=== PATIENT | male | born 1980 | race Caucasian/White ===

== ENCOUNTER 2024-08-07 20:58 | Emergency (ER) | payer OTHER, SELFPAY ==
[2024-08-07 21:02] VITALS: BP 126/78; PULSE 95; RESP 26; TEMP 36.8; O2SAT 98; BMI 40.6
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
[2024-08-07 21:38] VITALS: BP 126/78; PULSE 108; RESP 17; O2SAT 91
[2024-08-07 21:46] LABS: Alanine Aminotransferase 279 U/L (0-41); Albumin Level 4.3 g/dL (3.5-5.2); Alcohol Level 214 mg/dL (0-10); Alkaline Phosphatase 53 U/L (40-130); Anion Gap 18.4 (5-19); Aspartate Amino Transferase 328 U/L (0-40); Blood Urea Nitrogen 11 mg/dL (6-20); Calcium 8.4 mg/dL (8.5-10.5); Carbon Dioxide 24 mmol/L (22-29); Chloride 103 mmol/L (98-107); Creatinine Clr Calc Pharmacy 162.4699; Globulin 2.8 g/dL (1.3-4.6); Glomerular Filtration Rate 91.7 mL/min (90-130); Glucose 151 mg/dL (65-115); Osmolality Calculated 294 mOsm/kg (285-295); Potassium 4.4 mmol/L (3.5-5.1); Sodium 141 mmol/L (136-145); Total Bilirubin 0.4 mg/dL (0.15-1.2); Total Protein 7.1 g/dL (6.6-8.7)
[2024-08-07 21:48] LABS: Basophils # 0.1 10^3/uL (0.0-0.1); Basophils % 0.7 %; Eosinophils # 0.2 10^3/uL (0.0-0.8); Eosinophils % 1.3 %; Hematocrit 45.7 % (37-53); Lymphocytes # 4.2 10^3/uL (0.8-4.8); Lymphocytes % 34.4 %; Mean Corpuscular HGB Conc 33.5 g/dL (30-55); Mean Corpuscular Hemoglobin 32.1 pg (27-33); Mean Platelet Volume 11.8 fL (7.4-10.4); Monocytes # 0.7 10^3/uL (0.2-0.9); Monocytes % 5.9 %; Neutrophils # 6.72 10^3/uL (1.8-7.7); Neutrophils % 55.6 %; Nucleated Red Blood Cells % 0 %; Platelet Count 197 10^3/cmm (157-399); Red Blood Count 4.76 10^6/uL (3.85-5.65); Red Cell Distribution Width 12.2 % (12.1-15.1)
[2024-08-07] MEDS: iohexol 350 mg/mL 500 mL Btl (per mL) IV (21:48)
[2024-08-07] MEDS: sodium chloride 0.9% 1,000 ML 999 ML IV (22:15)
[2024-08-07 22:34] VITALS: RESP 15
[2024-08-07] MEDS: fentaNYL 50 mcg/mL INJ 2mL IVP (22:34)
[2024-08-07] MEDS: ondansetron 2 mg/ML SDV 2 mL 4 MG IVP (22:35)
[2024-08-07 22:42] VITALS: BP 139/72; PULSE 101; RESP 16; O2SAT 94
[2024-08-07] MEDS: tetanus-dipt-pertussis 0.5 mL SDV IM (23:55)
[2024-08-07 23:59] VITALS: BP 158/84; PULSE 107; O2SAT 95
== END 2024-08-08 00:03 ==
PROVIDERS: Emergency Provider Emergency Medicine
DX: S22.42XA Multiple fractures of ribs, left side, initial encounter for closed fracture (principal); S27.1XXA Traumatic hemothorax, initial encounter; S36.039A Unspecified laceration of spleen, initial encounter; S00.03XA Contusion of scalp, initial encounter; S36.031A Moderate laceration of spleen, initial encounter; V89.2XXA Person injured in unspecified motor-vehicle accident, traffic, initial encounter; F10.129 Alcohol abuse with intoxication, unspecified; Y90.7 Blood alcohol level of 200-239 mg/100 ml; Z23 Encounter for immunization
CPT/HCPCS: 70450; 71260; 72125; 74177; 80053; 80307; 85025; 90471; 90715; 96361; 96374; 96375; 99285; 99291; 99292; J2405; J3010; J7030

== ENCOUNTER 2024-09-03 19:26 | Emergency (ER) | payer OTHER, SELFPAY ==
[2024-09-03 19:47] VITALS: PULSE 101; RESP 22; TEMP 36.4; O2SAT 91; BMI 43.6
--- NOTE | 2024-09-03 20:17 | ECG_ITS ---
[facility] Date: 2024-09-03 Pat Name: Js Myers Department: Room: Gender: Male Customer Retention Representative: : 1980 Requested By: Regine Fall Order Number: [id number] Annmarie MD: Sabrina Rider M.D. Measurements Intervals [place] Rate: 89 P: 19 VT: 160 QRS: 30 QRSD: 103 T: 109 QT: 363 QTc: 443 Interpretive Statements SINUS RHYTHM NONSPECIFIC T-WAVE ABNORMALITY No previous ECG available for comparison Electronically Signed On 09-04-2024 15:58:49 WET MIX OPERATOR by Sabrina Ridre M.D. [email or web address]
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
--- NOTE | 2024-09-03 20:17 | XRR_ITS ---
PROCEDURE INFORMATION: Exam: XR Chest Exam date and time: 09/03/2024 8:23 PM Age: 44 years old Clinical indication: Shortness of breath; Prior surgery; Surgery date: <1 month; Surgery type: Costal fixations; Patient HX: SOB; Fluid retention TECHNIQUE: Imaging protocol: Radiologic exam of the chest. Views: 1 view. COMPARISON: CT chest abdpel w/*[id number] 08/07/2024 9:50 PM FINDINGS: Lungs: Mild left basilar atelectasis and/or pneumonia. Pleural spaces: Unremarkable. No pleural effusion. No pneumothorax. Heart/Mediastinum: Unremarkable. No cardiomegaly. Bones/joints: Interval metallic fixation of multiple left lateral rib fractures. Continued displaced multiple left posterior rib fractures. XR/XR chest 1V portable [id number] IMPRESSION: 1. Interval metallic fixation of multiple left lateral rib fractures. 2. Mild left basilar atelectasis and/or pneumonia. 3. Continued displaced multiple left posterior rib fractures.
[2024-09-03 20:40] LABS: Basophils # 0.1 10^3/uL (0.0-0.1); Basophils % 1.1 %; Eosinophils # 0.3 10^3/uL (0.0-0.8); Eosinophils % 5.7 %; Hematocrit 32.6 % (37-53); Lymphocytes # 1.1 10^3/uL (0.8-4.8); Lymphocytes % 21.3 %; Mean Corpuscular HGB Conc 31.9 g/dL (30-55); Mean Corpuscular Hemoglobin 30.9 pg (27-33); Mean Corpuscular Volume 96.7 fl (82-101); Mean Platelet Volume 10.5 fL (7.4-10.4); Monocytes # 0.7 10^3/uL (0.2-0.9); Monocytes % 13.2 %; Neutrophils # 3.09 10^3/uL (1.8-7.7); Neutrophils % 58.3 %; Nucleated Red Blood Cells % 0 %; Platelet Count 208 10^3/cmm (157-399); Red Blood Count 3.37 10^6/uL (3.85-5.65); Red Cell Distribution Width 12.3 % (12.1-15.1)
[2024-09-03] MEDS: iohexol 350 mg/mL 500 mL Btl (per mL) IV (20:40)
[2024-09-03 20:55] LABS: Troponin(5th) Baseline 19 ng/L (0-15)
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
[2024-09-03 21:12] LABS: Alanine Aminotransferase 23 U/L (0-41); Albumin Level 3.7 g/dL (3.5-5.2); Alkaline Phosphatase 112 U/L (40-130); Anion Gap 14.2 (5-19); Aspartate Amino Transferase 24 U/L (0-40); Blood Urea Nitrogen 13 mg/dL (6-20); Calcium 8.5 mg/dL (8.5-10.5); Carbon Dioxide 28 mmol/L (22-29); Chloride 100 mmol/L (98-107); Creatinine Clr Calc Pharmacy 126.6907; Globulin 2.3 g/dL (1.3-4.6); Glomerular Filtration Rate 65.8 mL/min (90-130); Glucose 117 mg/dL (65-115); NT Pro B Type Natriuretic Pept 99 pg/mL (0-125); Osmolality Calculated 287 mOsm/kg (285-295); Potassium 4.2 mmol/L (3.5-5.1); Sodium 138 mmol/L (136-145); Total Bilirubin 0.4 mg/dL (0.15-1.2)
[2024-09-03] MEDS: cefTRIAXone 1,000 mg SDV 1000 MG IVP (22:04)
[2024-09-03] MEDS: FUROsemide 10 mg/mL SDV 10mL 80 MG IVP (22:04)
[2024-09-03 22:16] VITALS: BP 189/92; PULSE 76; O2SAT 98
== END 2024-09-03 22:17 | disposition home or self-care (01) ==
PROVIDERS: Emergency Provider Emergency Medicine; PCP Physician Assistant
DX: R60.0 Localized edema (principal); L03.116 Cellulitis of left lower limb; L03.115 Cellulitis of right lower limb
CPT/HCPCS: 71045; 71275; 80053; 83880; 84484; 85025; 93005; 96374; 96375; 99285; J0696; J1940

== ENCOUNTER 2024-10-06 11:55 | Outpatient (CLI) | payer OTHER, SELFPAY ==
--- NOTE | 2024-10-06 11:59 | CT_ITS ---
WS: [id number] CT CHEST ANGIOGRAPHY WITH REFORMATS HISTORY: DYSPNEA TECHNIQUE: Contiguous axial images are obtained through the chest during arterial injection of intrav enous contrast. Images are reconstructed to evaluate the pulmonary arteries. MIP imaging also reviewe d. All CT scans at [facility] use at least one of these dose optimization techniques: automat ed exposure control; mA and/or kV adjustment per patient size (includes targeted exams where dose is matched to clinical indication); or iterative reconstruction. CONTRAST: Omnipaque 350; 100 mL IV. DLP: 1055.07 mGy.cm COMPARISON: 09/03/2024 Adequate opacification of the pulmonary arteries. No pulmonary emboli identified. Beyond the segmenta l branches the opacification becomes limited. Pulmonary arteries not dilated. No RIGHT heart strain. Normal thoracic aorta. Bovine arch. Mild volume loss LEFT thorax with pleural thickening and scarring. Posttraumatic pleural thickening. Fluid collection previously described along the lateral mid LEFT thorax as essentially resolved. Ther e is persistent mild soft tissue thickening. Plate and screw fixation of several mid to lower LEFT ri b fractures. Rib fractures continue to heal. No pneumothorax. No mediastinal or hilar adenopathy. Mild hepatic steatosis. No adrenal mass. Spleen continues to be very slightly heterogeneous which pro bably related to the early phase of injection resulting in mosaic attenuation. The spleen is difficul t to evaluate during arterial enhancement. CT/CT angio chest PE protcl [id number] IMPRESSION: 1. No pulmonary embolism. 2. Volume loss in the LEFT thorax with pleural thickening and scarring and pos tsurgical rib fixation. 3. No adenopathy. 4. Numerous fixated rib fractures with continued healing in good position. 5. Resolved fluid collection along the LEFT lateral thorax.
[2024-10-06] MEDS: iohexol 350 mg/mL 500 mL Btl (per mL) IV (13:01)
== END 2024-10-06 11:56 | disposition home or self-care (01) ==
LOC: RAD 11:56
PROVIDERS: PCP Physician Assistant; Visit Provider Physician Assistant
DX: J92.9 Pleural plaque without asbestos (principal); R06.00 Dyspnea, unspecified
CPT/HCPCS: 71275